=== PATIENT | male | born 1985 | race Caucasian/White ===

== ENCOUNTER 2019-07-24 21:37 | Emergency (ER) | payer OTHER, SELFPAY ==
[2019-07-24 21:40] VITALS: BP 133/74; PULSE 60; RESP 16; TEMP 35.8; O2SAT 100
--- NOTE | 2019-07-24 21:52 | ED.WOUNDLAC ---
HPI - Wound/Laceration General Chief Complaint: Wound/Laceration Stated Complaint: lac to chin Time Seen by Provider: 07/24/19 21:48 Source: patient, family and RN notes reviewed Mode of arrival: ambulatory Limitations: no limitations History of Present Illness HPI narrative: Pt is a 34 y/o male who presents to the ED with c/o laceration on his chin happening this evening. He notes that he had been drinking a significant amount of EtOH this evening. Pt's family states that he went outside and fell over a dog house, striking his chin on the ground. He reports a laceration on his chin with associated pain s/p the fall, but denies any head injury or LOC during the fall. Pt also denies any CP, back pain, neck pain, leg pain, or arm pain. Location: face (chin) Place: home Patient tetanus UTD: No Context: fall Associated symptoms: pain (pain around laceration on chin) Related Data Home Medications Medication Instructions Recorded Confirmed No Home Medications 07/24/19 07/24/19 Allergies Allergy/AdvReac Type Severity Reaction Status Date / Time No Known Allergies Allergy Verified 07/24/19 21:38 Review of Systems Review of Systems: All systems reviewed & are unremarkable except as noted in HPI and below Cardiovascular: Cardiovascular: Denies chest pain Musculoskeletal: Musculoskeletal: Denies back pain, Denies neck pain and Denies other (arm pain; leg pain) Integumentary/Breasts: Skin/Breast: Reports skin pain (pain around laceration on chin) and Reports wounds (laceration on chin) Neurologic: Denies other (head injury; LOC) PENDING SALE TO [facility] Past Medical History Medical History Healthy adult male Surgical History Surgical History No significant past surgical history Social History Social History Smoking status: Unknown if ever smoked Exam Const: General: cooperative, healthy appearing, comfortable, no acute distress, well developed, alert and awake; No confusion Orientation/consciousness: oriented to person, oriented to place, oriented to time, patient oriented x3 and No confusion Limitations: no limitations Neck: Neck: normal visual inspection and full ROM Resp: Effort & Inspection: normal respiratory effort, able to speak in complete sentences, no respiratory distress and not tachypneic Auscultation: clear to auscultation bilaterally, no crackles, no rales, no rhonchi and no wheezes Cardio: Rate: regular rate Rhythm: regular rhythm GI: Inspection: normal to inspection GI Palp: No abdominal tenderness, Yes Soft to palpation, No Tenderness to palpation present (GI), No Guarding due to palpation present (GI), No Rigid due to palpation and No Rebound tenderness present Auscultation: normal bowel sounds Skin: General skin exam: normal color, elasticity normal and turgor normal Trauma: laceration (3 cm laceration on chin) Neuro: General: oriented to person, oriented to place, oriented to time, patient oriented x3, tone normal, moves all extremities and Normal light touch and pain sensation Speech: No Abnormal speech present Sensory Exam: No Sensory deficit (Neuro) Extrem: General: normal to inspection, full ROM and capillary refill normal Psych: Appearance: grossly normal and well kempt Mental Status: mental status grossly normal Speech and movement: Normal speech and movement present Affect: normal affect Attitude: cooperative Thought process: Normal thought process present Thought content: Yes Normal thought content present Insight: Good insight present (Psych) Judgement: Good judgement present (Psych) Course Vital Signs Vital signs: Vital Signs Temperature 35.8 C L 07/24/19 21:40 Pulse Rate 60 07/24/19 21:40 Respiratory Rate 16 07/24/19 21:40 Blood Pressure 133/74 07/24/19 21:40 Pulse Oximetry 100 07/24/19 21:40 Temperature 35.8 C
[2019-07-24] MEDS: TETANUS,DIPHTHERIA,AC PERTUSSIS ADULT 0.5 ML (ADACEL) IM (23:37)
== END 2019-07-24 23:45 | disposition home or self-care (01) ==
PROVIDERS: Emergency Provider Emergency Medicine
DX: S01.81XA Laceration without foreign body of other part of head, initial encounter (principal); Z23 Encounter for immunization; W18.09XA Striking against other object with subsequent fall, initial encounter
CPT/HCPCS: 12011; 90471; 90715; 99283